=== PATIENT | male | born 1985 | race African-American/Black ===

== ENCOUNTER 2016-05-15 10:35 | Emergency (ER) ==
[2016-05-15 10:42] VITALS: BP 126/50
== END 2016-05-15 12:45 | disposition left against medical advice (07) ==
LOC: ED 10:35
DX: M54.5 Low back pain (principal)

== ENCOUNTER 2016-05-15 13:15 | Emergency (ER) ==
[2016-05-15 16:53] LABS: URINE MICROSCOPIC NEEDED? NO; URINE SOURCE CLEAN CATCH
[2016-05-15 17:14] LABS: BILIRUBIN URINE NEGATIVE (NEGATIVE); BLOOD URINE NEGATIVE (NEGATIVE); CLARITY CLEAR (CLEAR); COLOR YELLOW; GLUCOSE URINE NEGATIVE (NEGATIVE); LEUKOCYTES URINE NEGATIVE (NEGATIVE); NITRITE URINE NEGATIVE (NEGATIVE); PROTEIN URINE NEGATIVE (NEGATIVE); UROBILINOGEN URINE NORMAL
[2016-05-15] MEDS ORDERED: NORFLEX IM ONE (17:18)
[2016-05-15] MEDS ORDERED: TORADOL IM ONE (17:18)
[2016-05-15] MEDS ORDERED: DEPO-MEDROL IM ONE (17:18)
--- NOTE | 2016-05-15 17:26 | PROVIDER DOCUMENTATION ---
HPI-General Adult - General Chief Complaint: Back Pain Stated Complaint: BACK PAIN Time Seen by Provider: 05/15/16 16:43 Source: patient Allergies/Adverse Reactions: Patient Allergies Allergy/AdvReac Type Severity Reaction Status Date / Time No Known Allergies Allergy Verified 09/04/15 20:57 Home Medications: Emtricitab/Rilpivirine/Tenofov [Complera Tablet] 1 each PO DAILY 07/11/15 - History of Present Illness -Gen Adult Nature of Presenting Problems: Pt. is 30 yom that presents with c/o low back pain. Pt. reports a Hx of low back pain and states his motrin isn't helping. Location of Pain/Injury: reports: back. denies: head, face, mouth, neck, chest , upper extremity, hand(s), abdomen, pelvis, genitalia, lower extremity, feet, upper body, lower body, generalized Pain Radiation: reports: no radiation Quality of Pain: reports: aching. denies: burning, cramping, dull, fullness, indigestion, pressure, sharp, stabbing, tearing, throbbing, tightness Severity: reports: mild. denies: moderate, severe Onset/Duration: reports: gradual, 1 week ago Timing: reports: still present, constant. denies: improving, gone now, resolved prior to arrival, intermittent, changing over time, getting worse Context/Activities at Onset: reports: none. denies: recent emotional stress, recent physical stress, recent trauma history, possible bad food, cold exposure , out of country travel Modifying Factors: improves with: nothing Associated Symptoms: reports: back/neck pain. denies: anxiety, arm pain, chest pain, constipation, cough, diaphoresis, diarrhea, dizziness, EENT symptoms, fatigue, fever/chills, genitourinary problems, headaches, heartburn, joint pain , loss of appetite, malaise, muscle aches, sinus congestion/drainage, nausea, rash, seizure, shortness of breath, sensory/motor loss, pain with inspiration, swelling/mass in abdomen, syncope, vomiting, weakness, trouble walking Similar Symptoms Previously?: Yes Recently seen or treated by another doctor?: No Review of Systems - Adult - REVIEW OF SYSTEMS - ADULT Constitutional: reports: see HPI. denies: chills, fever, fatique Eyes: reports: see HPI. denies: discharge, blurred vision, double vision Ears, Nose, Mouth & Throat: reports: see HPI. denies: ear discharge, ear pain, nose pain, loose teeth, mouth/dental pain, throat swelling Cardiovascular: reports: see HPI. denies: chest pain, irregular heart rate, orthopnea, syncope Respiratory: reports: see HPI. denies: chronic cough, cough, pleurisy, shortness of breath, wheezing Gastrointestinal: reports: see HPI. denies: abdominal pain, hematemesis, diarrhea, nausea, vomiting Genitourinary: reports: see HPI. denies: dysuria, discharge, frequent UTI's, hesitency, urgency Musculoskeletal: reports: see HPI, back pain, muscle aches. denies: bone pain, joint pain, neck pain Integumentary: reports: see HPI. denies: hives, hair loss, itching, rash, skin thickening Neurological: reports: see HPI. denies: dizziness/vertigo, headache/migraines, paresthesia, slurred speech, tremors Psychiatric: reports: see HPI. denies: anxiety, depression, emotional problems , insomnia, panic attacks, suicidal thoughts Past History - Adult - PAST MEDICAL HISTORY-ADULT Review of Records: reports: Old Records Reviewed, Nursing Assessment Review, Medications Reviewed, Social history reviewed & non-contributory. Major Childhood Illnesses: reports: denies history Endocrine/Immune: reports: HIV/AIDS - PRIOR SURGERIES/PROCEDURES Surgical/Procedure History: reports: none - IMMUNIZATION STATUS Childhood Immunizations: See Nurse Assessment Flu Vaccine: See Nurse Assessment Physical Exam-General - PHYSICAL EXAM-ADULT Initial Vital Signs Reviewed: Yes - CONSTITUTIONAL General Appearance: alert, mild distress, thin. negative: anxious, lethargic, slow to respond, obtunded, combative - EYES Eyes: PERRL/EOMI, pink conjunctivae. negative: conjuctival exudate, photophobia , subconjunctival hemorrhage - HEAD, EARS, NOSE, MOUTH & THROAT HENMT: normocephalic/atraumatic, moist mucous membranes, angioedema, frontal tenderness, maxillary tenderness - NECK Neck: non-tender, full range of motion, supple, normal inspection. negative: lymphadenopathy, trachial deviation, thyromegaly - RESPIRATORY Respiratory: lungs clear, normal breath sounds. negative: crackles, rales, rhonchi, stridor, wheezing - CARDIOVASCULAR Cardiovascular: normal peripheral pulses, regular rate, rhythm, no JVD, no murmur. negative: extra beats, friction rub, irregularly irregular - CHEST (BREASTS) Chest/Breast: deferred - GASTROINTESTINAL (ABDOMEN) Abdominal Exam: normal bowel sounds, non tender, soft. negative: distended, guarding, rigid, rebound, tenderness, hernia, mass - GENITOURINARY Male Genitalia: deferred Rectal Exam: deferred Hemoccult Exam: deferred - LYMPHATIC Lymphatic: no adenopathy. negative: axilla node tender, cervical node tenderness - MUSCULOSKELETAL Back Exam: normal inspection, no CVA tenderness, no vertebral tenderness, muscle spasm. negative: decreased range of motion, ecchymosis, swelling, vertebral tenderness Extremity: normal range of motion, non-tender, normal gait, normal inspection. negative: deformity, erythema, inflammation, swelling, tenderness Peripheral Pulses: radial (R): 2+, radial (L): 2+ - SKIN Integumentary: normal color, normal turgor, warm/dry. negative: cyanosis, diaphoresis, ecchymosis, erythema, jaundice, mottled, pallor, petechiae, purpura , rash, swelling, tenderness - NEUROLOGIC Neurologic: grossly normal, no motor/sensory deficits. negative: aphasia, facial droop, focal weakness, motor weakness, sensory deficit - PSYCHIATRIC Psych/Mental Status: normal mood/affect, normal thought content, normal thought process, oriented x 3. negative: anxious, paranoid, tearful Progress - PLAN OF CARE/RESULTS Progress/Plan/Lab Results: Discussed plan of care with patient. Patient agrees with plan and verbalizes understanding. Vital Signs Temp Pulse Resp BP Pulse Ox 05/15/16 13:26 97.8 F 77 18 114/62 100 No Known Allergies Allergy (Verified 09/04/15 20:57) Emtricitab/Rilpivirine/Tenofov [Complera Tablet] 1 each PO DAILY 07/11/15 Doxycycline 100 mg PO BID #28 capsule 09/04/15 Laboratory 05/15/16 16:49 Urine Source CLEAN CATCH Urine Color YELLOW Urine Clarity CLEAR Urine pH 7.0 Ur Specific [place] 1.010 Urine Protein NEGATIVE Urine Ketones NEGATIVE Urine Blood NEGATIVE Urine Nitrite NEGATIVE Urine Bilirubin NEGATIVE Urine Urobilinogen NORMAL Urine WBC NEGATIVE Urine Glucose NEGATIVE Orders Category Date Time Status URINALYSIS PL [URINALYSIS] Stat Lab 05/15/16 16:49 Completed Ketorolac [Toradol] Med 05/15/16 17:18 Discontinued 60 mg IM NOW ONE Methylprednisolone Acetate [Depo-Medrol] Med 05/15/16 17:18 Discontinued 40 mg IM NOW ONE Orphenadrine [Norflex] Med 05/15/16 17:18 Discontinued 60 mg IM NOW ONE Laboratory Tests 05/15/16 16:49 Urine Source CLEAN CATCH Urine Color YELLOW Urine Clarity CLEAR Urine pH 7.0 Ur Specific [place] 1.010 Urine Protein NEGATIVE Urine Ketones NEGATIVE Urine Blood NEGATIVE Urine Nitrite NEGATIVE Urine Bilirubin NEGATIVE Urine Urobilinogen NORMAL Urine WBC NEGATIVE Urine Glucose NEGATIVE Departure - Departure Time of Disposition Order: 17:27 DIAGNOSIS: Lumbago Qualifiers: Chronicity: acute Back pain laterality: bilateral Sciatica presence: unspecified whether sciatica present Qualified Code(s): M54.5 - Low back pain Disposition: HOME 01 Certified Medical Emergency: Emergent Condition: Stable Additional Instructions: Follow up with primary care physician Take medications as directed Return to ED for any concerns or worsening of symptoms ED Follow Up Instructions: You have been treated by a care provider in the Emergency Department. These instructions are being provided to you so you can have an understanding of how to care for yourself upon discharge. Upon discharge from the Emergency Department, you are responsible for making arrangements for follow-up care by a physician of your choice. Take all prescribed medications as directed. Return to the Emergency Department immediately for any new or worsening symptoms. You may call the Physician Referral phone number at [phone] to obtain a list of Physicians who are taking new patients. Prescriptions: Cyclobenzaprine [Flexeril] 10 mg PO TID #20 tablet Ibuprofen [Motrin] 800 mg PO Q8H PRN PRN #20 tablet PRN Reason: inflammation Omeprazole 20 mg PO DAILY #20 tablet. Attnetoation - Physician/ Mid-level Attestation Patient care was provided by Mid-level provider (EAR NOSE THROAT PHYSICIAN/PA):: Yes Mid-level provider:: Silvana Coon Mid-level documentation review:: The Mid-level provider documentation, treatment plan and medical decision making was reviewed by the physician who agrees with all treatment and medical decision making by the [facility].
[2016-05-15 17:56] VITALS: BP 142/74
== END 2016-05-15 17:43 | disposition home or self-care (01) ==
LOC: P.ED 13:15
DX: M54.5 Low back pain (principal); M79.1 Myalgia; Z79.899 Other long term (current) drug therapy; Z21 Asymptomatic human immunodeficiency virus [HIV] infection status
CPT/HCPCS: 96372; J1030; J1885; J2360